=== PATIENT | male | born 1990 | race Caucasian/White ===

== ENCOUNTER 2018-04-26 02:28 | Emergency (ER) | payer SELFPAY ==
--- NOTE | 2018-04-26 02:58 | ER ---
Nurse's Notes [facility] Name: Eliceo Jeronimo Age: 28 yrs Sex: Male : 1990 Arrival Date: 04/26/2018 Time: : Bed 16 Private MD: Diagnosis: Presentation: 04/26 02:47 Presenting complaint: Patient states: Pt is manic/depressive paranoid schizophrenic, pt tl2 states he is running from a group of people and needs a safe place before he leaves town. Pt also complains of pain in lower back, states that he needs surgery. Pt denies SI or HI. Transition of care: patient was not received from another setting of care. Onset of symptoms was April 26, 2018. Risk Assessment: Do you want to hurt yourself or someone else? Patient reports no desire to harm self or others. Initial Sepsis Screen: Does the patient meet any 2 criteria? No. Patient's initial sepsis screen is negative. Does the patient have a suspected source of infection? No. Patient's initial sepsis screen is negative. Care prior to arrival: None. 02:47 Method Of Arrival: Ambulatory tl2 02:47 Acuity: SID 4 tl2 Triage Assessment: 02:50 General: Appears in no apparent distress. Behavior is cooperative, anxious, restless, tl2 paranoid. Pain: Complains of pain in lumbar area. Neuro: Level of Consciousness is awake, alert, obeys commands, Oriented to person, place, time, situation. Cardiovascular: Denies chest pain. Respiratory: Airway is patent Respiratory effort is even, unlabored, Respiratory pattern is regular, symmetrical. GI: No signs and/or symptoms were reported involving the gastrointestinal system. : No signs and/or symptoms were reported regarding the genitourinary system. Historical: - Allergies: 02:50 No Known Allergies; tl2 - Home Meds: 02:50 None [Active]; tl2 - PMHx: 02:50 Bipolar disorder; manic/depressive; paranoid schizophrenia; tl2 - PSHx: 02:50 back surgery; tl2 - Immunization history:: Adult Immunizations up to date. - Social history:: Smoking status: Patient uses tobacco products, smokes one-half pack cigarettes per day, Patient uses street drugs, marijuana, Methamphetamine (Meth). - Ebola Screening: : No symptoms or risks identified at this time. Screenin:53 Abuse screen: Denies threats or abuse. Nutritional screening: No deficits noted. tl2 Tuberculosis screening: No symptoms or risk factors identified. Fall Risk None identified. Assessment: 02:50 General: see triage assessment. tl2 02:57 Reassessment: Pt walked out of room and stated that he needed to leave now. Explained tl2 to pt risks of leaving before being seen by provider and he continued to walk out. Vital Signs: 02:50 BP 142 / 84; Pulse 105; Resp 18; Temp 98(O); Pulse Ox 95% on R/A; Weight 70.31 kg; tl2 Height 68 in. (172.72 cm); Pain 8/10; 02:50 Body Mass Index 23.57 (70.31 kg, 172.72 cm) tl2 ED Course: 02:31 Patient arrived in ED. es 02:49 Triage completed. tl2 02:50 Arm band placed on right wrist. tl2 02:53 Florencio Ortega MD is Attending Physician. 02:53 Patient has correct armband on for positive identification. Placed in gown. Bed in low tl2 position. Call light in reach. Administered Medications: No medications were administered Outcome: 02:58 Patient left the ED. tl2 Signatures: Terrie Wood Taylor, RN RN tl2 Florencio Ortega MD MD Corrections: (The following items were deleted from the chart) 02:53 02:47 Presenting complaint: Patient states: Pt is manic/depressive paranoid tl2 schizophrenic, pt states he is running from a group of people and needs a safe place before he leaves town. Pt also complains of pain in lower back, states that he needs surgery. tl2
--- NOTE | 2018-04-27 02:58 | EDPHYS ---
Physician Documentation [facility] Name: Eliceo Jeronimo Age: 28 yrs Sex: Male : 1990 Arrival Date: 04/26/2018 Time: : Bed 16 Private MD: ED Physician Florencio Ortega HPI: 04/26 20:58 This 28 yrs old Male presents to ER via Ambulatory with complaints of Altered gs Mental Status. 20:[address] see patient refused to be seen. gs Historical: - Allergies: 02:50 No Known Allergies; tl2 - Home Meds: 02:50 None [Active]; tl2 - PMHx: 02:50 Bipolar disorder; manic/depressive; paranoid schizophrenia; tl2 - PSHx: 02:50 back surgery; tl2 - Immunization history:: Adult Immunizations up to date. - Social history:: Smoking status: Patient uses tobacco products, smokes one-half pack cigarettes per day, Patient uses street drugs, marijuana, Methamphetamine (Meth). - Ebola Screening: : No symptoms or risks identified at this time. Vital Signs: 02:50 BP 142 / 84; Pulse 105; Resp 18; Temp 98(O); Pulse Ox 95% on R/A; Weight 70.31 kg; tl2 Height 68 in. (172.72 cm); Pain 8/10; 02:50 Body Mass Index 23.57 (70.31 kg, 172.72 cm) tl2 MDM: 02:54 Patient medically screened. gs Administered Medications: No medications were administered Disposition: 04/26/18 02:58 Patient left the facility before being seen by provider. - Patient left due to (see nurse's notes). Signatures: Kasey Orosco RN RN tl2 Florencio Ortega MD MD gs Corrections: (The following items were deleted from the chart) 02:58 02:58 04/26/2018 02:58 Patient left the facility before being seen by provider. Reason tl2 stated they are leaving due to (see nurse's notes). tl2
== END 2018-04-26 02:58 | disposition left against medical advice (07) ==
LOC: ER 02:28
DX: Z53.21 Procedure and treatment not carried out due to patient leaving prior to being seen by health care provider (principal)
CPT/HCPCS: 99281

== ENCOUNTER 2018-04-27 20:23 | Emergency (ER) | payer SELFPAY ==
--- NOTE | 2018-04-27 20:28 | ER ---
Nurse's Notes [facility] Name: Eliceo Jeronimo Age: 28 yrs Sex: Male : 1990 Arrival Date: 04/27/2018 Time: 20:26 Bed Waiting Private MD: Diagnosis: ED Course: 04/27 20:26 Patient arrived in ED. ak1 20:27 Patient's name was called from ER lobby. No response. Unable to locate patient. Will ak1 disposition as left without being seen by a provider. Administered Medications: No medications were administered Outcome: 20:27 Patient left the ED. ak1 Signatures: Carmen Echeverria RN RN ak1
== END 2018-04-27 20:27 | disposition left against medical advice (07) ==
LOC: ER 20:23
DX: Z53.21 Procedure and treatment not carried out due to patient leaving prior to being seen by health care provider (principal)

== ENCOUNTER 2022-08-25 13:55 | Emergency (ER) | payer OTHER ==
--- OUTSIDE RECORDS SUMMARY | 2022-08-25 14:03 | XMS REPORT | Continuity of Care Document ---
:1990 Author Organization [facility] t Address [address] [place] [address]. [address] [place] [address] Care Team Providers Name Role Phone [facility], [facility] [facility] [facility] Primary Care Physician Unavailable ALEX GOULD Attending Clinician Unavailable Alex Solo Attending Clinician Pam Jim DO Attending Clinician PAM JIM Attending Clinician Unavailable Brigitte Gandhi Attending Clinician BRIGITTE MOELLER Attending Clinician Unavailable ALEX GOULD Admitting Clinician Unavailable Payers Payer Name Policy Type Policy Number Effective Date Expiration Date S carissa [employer] [id number] 2022 00:00:00 Problems Condition Condition Condition Status Onset Resolution Last Treating Co mments Source Name Details Category Date Date Treatment Clinician Date No known No known Disease Unive rs active active ity of problems problems [facility] Allergies, Adverse Reactions, Alerts Allergy Allergy Status Severity Reaction(s) Onset Inactive Treating Comm ents Source Name Type Date Date Clinician NO KNOWN Drug Active Univers ALLERGIE Class ity of S [facility] Social History Social Habit Start Date Stop Date Quantity Comments Source Exposure to 2022-04-11 2022-04-21 Not sure [facility] SARS-CoV-2 (event) 00:00:00 18:05:00 Medica l Branch Sex Assigned At [birth year] [facility] [place] 00:00:00 00:00:00 Medical Branch Smoking Status Start Date Stop Date Source Tobacco smoking consumption [facility] [place] Medical unknown Branch Medications Ordered Filled Start Stop Current Ordering Indication Dosage Frequency Signature Comments Components Source Medication Medication Date Date Medication? Clinician (SIG) Name Name prasannao 2021-04 No 10mg 10 mg, Uni vers ne sod phos 06-23 Intramuscu i ty of PF 02:00: 02:07 lar, ONCE, [place] injection 00 :00 1 dose, On Medi pam 10 mg Mon Branch 04/21/22 at 1999, 1 mL ketorolac 2021-04- No 60mg 60 mg, Unive rs (TORADOL) 06-23 Intramuscu ity of injection 02:00: 02:00 lar[place] ONCE[place] 60 mg 00 :00 1 dose, On Medical Mon Branch 04/21/22 at 1999, WILL predniSONE 2021-04- No [id number] 40mg Take 2 Univers 20 mg 06-23 [id number] tablets by ity o f tablet 00:00: 05:59 mouth in [place] 00 :00 the Medical morning Branch for 5 days. ibuprofen 2021-04 Yes [id number] 800mg Take 1 Univers 800 mg 06-22 [id number] tablet by ity of tablet 00:00: mouth [place] 00 every 8 Medical (eight) Branch hours as needed for Pain (scale 4-6). acetaminoph 2021-04- No [id number] 1{tbl} Take 1 U nivers en-codeine 06-22 tablet by ity of 300-30 mg 00:00: 05:59 mouth [place] tablet 00 :00 every 6 Medical (six) Branch hours as needed for Pain (scale 7-10) for up to 7 days. Indication s: acute pain morpHINE 2019-04- No 4mg 4 mg, Slow Un ambrocio injection 4 06-12 IV Push, ity of mg 02:30: 01:29 ONCE, 1 [place] [facility] Branch at 2029, STAT iohexol 2019-04- No 120mL 120 mL, Unive rs (OMNIPAQUE -11 04- Intravenou it y of 350 01:30: 01:08 s, ONCE, 1 [place] BULK-100 00 :00 dose, Tue Medica l mL) 04/10/20 Branch injection at 1930, 120 mL Routine morpHINE 2019-04- No 4mg 4 mg, Slow Un ambrocio injection 4 2-16 12-16 IV Push, ity of mg 01:15: 00:14 ONCE, 1 [place] 00 :00 dose, Tue Medical 04/10/20 Branch at 1915, STAT ondansetron 2019-04- No 4mg 4 mg, Slow Univers (ZOFRAN 2-16 12-16 IV Push, ity of (PF)) 01:15: 00:14 ONCE, 1 [place] injection 4 00 :00 dose, Tue Med ical mg 04/10/20 Branch at 191, WILL maalox:diph 2019-04- No 15mL 15 mL, Uni vers enhydrAMINE 2-16 12-16 Oral, ity of :lidocaine 00:15: 00:15 ONCE, 1 [place] as 2 % viscous 00 :00 dose, Tue Med ical 1:1:1 04/10/20 Branch (FIRST-MOUT at 181, HWASH BLM) WILL oral suspension 15 mL NaCl 0.9% 2019-04- No 1000mL at 999 Uni vers (NS) bolus 2-16 12-16 mL/hr, ity of infusion 00:15: 01:22 1,000 mL, [place] as 1,000 mL 00 :00 IV Medical Infusion, Branch ONCE, 1 dose, 04/10/20 at 1815, WILL ondansetron 2019-04 Yes [id number] 4mg Take 1 U nivers 4 mg 2-15 tablet by ity of disintegrat 00:00: mouth [place] ing tablet 00 every 8 Medica l (eight) Branch hours as needed for Nausea and Vomiting (N/V). traMADoL 50 2019- Yes [id number] 50mg Take 1 Univ ers mg tablet 2-15 tablet by ity o f 00:00: mouth [place] 00 every 6 Medical (six) Branch hours as needed for Pain (scale 7-10). Indication s: acute pain ondansetron 2019-04 Yes [id number] 4mg Take 1 U nivers 4 mg 2-15 tablet by ity of disintegrat 00:00: mouth [place] ing tablet 00 every 8 Medica l (eight) Branch hours as needed for Nausea and Vomiting (N/V). traMADoL 50 2019-04 Yes [id number] 50mg Take 1 Univ ers mg tablet 2-15 tablet by ity o f 00:00: mouth [place] 00 every 6 Medical (six) Branch hours as needed for Pain (scale 7-10). Indication s: acute pain ondansetron 2019-04 Yes [id number] 4mg Take 1 U nivers 4 mg 2-15 tablet by ity of disintegrat 00:00: mouth [place] ing tablet 00 every 8 Medica l (eight) Branch hours as needed for Nausea and Vomiting (N/V). traMADoL 50 2019-04 Yes [id number] 50mg Take 1 Univ ers mg tablet 2-15 tablet by ity o f 00:00: mouth [place] 00 every 6 Medical (six) Branch hours as needed for Pain (scale 7-10). Indication s: acute pain ciprofloxac 2019-04- No [id number] 500mg Take 1 Univers in HCl 500 2-15 12-23 tablet by ity of mg tablet 00:00: 05:59 [place] 00 :[place] (two) Medical times Branch daily for 7 days. ciprofloxac 2019-04- No [id number] 500mg Take 1 Univers in HCl 500 2-15 12-21 tablet by ity of mg tablet 00:00: 05:59 [place] 00 :[place] (two) Medical times Branch daily for 5 days. Vital Signs Vital Name Observation Time Observation Value Comments Source Systolic blood 2022-04-22 02:00:00 152 mm[Hg] [facility] [place] [facility] Diastolic blood 2022-04-22 02:00:00 88 mm[Hg] [facility], [facility] Heart rate 2022-04-22 02:00:00 78 /min [facility] Respiratory rate 2022-04-22 02:00:00 18 /min [facility] Oxygen saturation in 2022-04-22 02:00:00 98 /min [facility] Arterial blood by [facility] Pulse oximetry Branch Body temperature 2022-04-22 00:08:00 37.22 [facility] Body height 2022-04-22 00:08:00 175.3 cm [facility] Body weight 2022-04-22 00:08:00 74.844 kg [facility] [place] [facility] BMI 2022-04-22 00:08:00 24.37 kg/m2 [facility] [place] [facility] Systolic blood 2020-07-17 17:52:00 134 mm[Hg] Univer sity of pressure [place] [facility] Diastolic blood 2020-07-17 17:52:00 97 mm[Hg] Unive rsity of pressure [place] [facility] [place] Heart rate 2020-07-17 17:52:00 102 /min [facility] [place] [facility] Body temperature 2020-07-17 17:52:00 37.44 [facility] [place] [facility] Respiratory rate 2020-07-17 17:52:00 16 /min Univ ersity [facility] [place] Medical [place] Body weight 2020-07-17 17:52:00 77.111 kg [facility] [place] [facility] [place] BMI 2020-07-17 17:52:00 25.10 kg/m2 Universi ty of [facility] Oxygen saturation in 2020-07-17 17:52:00 99 /min University of Arterial blood by [facility] Pulse oximetry Branch Systolic blood 2020-04-11 02:32:00 134 mm[Hg] Univer sity of pressure [place] [facility] [place] Diastolic blood 2020-04-11 02:32:00 94 mm[Hg] Unive rsity of pressure [facility] Heart rate 2020-04-11 02:32:00 92 /min [facility] [place] [facility] [place] Respiratory rate 2020-04-11 02:32:00 18 /min Univ ersity of [facility] Oxygen saturation in 2020-04-11 02:32:00 98 /min University of Arterial blood by [facility] Pulse oximetry Branch Body temperature 2020-04-10 23:48:00 36.67 [facility] [place] [facility] Body height 2020-04-10 23:48:00 175.3 cm [facility] [place] [facility] [place] Body weight 2020-04-10 23:48:00 79.379 kg [facility] [place] [facility] BMI 2020-04-10 23:48:00 25.84 kg/m2 Universi ty of [facility] Procedures Procedure Date / Time Performed Performing Clinician Sourc e XR WRIST 3+ VW LEFT 2022-04-22 01:05:48 Alex Gould [facility] CONSENT/REFUSAL FOR 2022-04-21 23:50:01 Doctor Unassigned, No [facility] [place] DIAGNOSIS AND Name Medical Branch TREATMENT CONSENT/REFUSAL FOR 2020-07-17 17:48:26 Doctor Unassigned, No [facility] [place] DIAGNOSIS AND Name Medical Branch TREATMENT URINALYSIS 2020-04-11 01:24:[address] [facility] CT ABDOMEN PELVIS W 2020-04-11 01:16:[address] [facility] [facility] Branch LIPASE 2020-04-11 00:13:00 Brigitte Moeller Universi ty [facility] COMP. METABOLIC PANEL 2020-04-11 00:13:00 Brigitte Moeller [facility] [place] ([id number]) Medical Branch CBC WITH DIFF 2020-04-11 00:13:00 Brigitte Moeller [facility] COVID-19 (ID NOW RAPID 2020-04-11 00:13:00 Brigitte Moeller [facility] [place] TESTING) Medical Branch CONSENT/REFUSAL FOR 2020-04-10 23:32:57 Doctor Unassigned, No [facility] [place] DIAGNOSIS AND Name Medical Branch TREATMENT NOTICE OF PRIVACY 2020-04-10 23:32:47 Doctor Unassigned, No [facility] PR[facility] Name Medical Branch Encounters Start End Encounter Admission Attending Care Care Encounter Source Date/Time Date/Time Type Type Clinicians Facility Department ID 2022-04-21 2022-04-21 Emergency X GOULD, [facility] ERT [id number] Univers 18:10:00 20:15:00 ALEX xavier [facility] 2022-04-21 2022-04-21 Emergency Gould, [facility] [id number] Univers 18:10:00 20:15:00 Alex BLAIR [id number] i ty [facility] [id number] [facility] [id number] [facility] 084 Branch 2020-07-17 2020-07-17 Emergency Diandra, [facility] [id number] Univers 12:54:00 13:20:00 Pam [id number] [id number] [facility] [id number] [address] 2020-07-17 2020-07-17 Emergency [facility] E[facility] [id number] [facility] 12:54:00 12:54:00 PAM [facility] 2020-04-10 2020-04-10 Emergency [facility] [id number] Univers 17:50:00 21:00:00 Brigitte Blair [id number] [facility] [id number] [facility] [id number] [address] 2020-04-10 2020-04-10 Emergency [facility] [id number] [facility] 17:33:00 17:33:00 [facility] Results Test Description Test Time Test Comments Results Result Comments Source URINALYSIS 2020-04-11 02:42:00 Test Item Value Reference Range Interpretation Comme nts APPEARANCE (test code = Hazy Clear A 0508306633) COLOR (test code = 6570652707) Carmen Yellow A PH (test code = 0413394737) 4.8-8.0 SP GRAVITY (test code = 1.003-1.030 4308965229) GLU U QUAL (test code = Normal Normal 6807610929) BLOOD (test code = 3292470368) Negative Negative KETONES (test code = 1943044104) 80 mg/dL Negative A PROTEIN (test code = 2887-8) 100 mg/dL Negative A UROBILIN (test code = 2.0 mg/dL Normal A 8586576065) BILIRUBIN (test code = 2 mg/dL Negative A 0507944721) NITRITE (test code = 5593567465) Negative Negative LEUK DELILAH (test code = 25/uL Negative A 7993925450) RBC/HPF (test code = 9301220669) See_Comment H [Automated message] The system which ge nerated this result transmit jaime reference range: 0 - 3 HP F. The reference range was not used to interpret th is result as normal/abnormal . WBC/HPF (test code = 0415627837) See_Comment [Automated message] The system which ge nerated this result transmit jaime reference range: 0 - 5 HP F. The reference range was not used to interpret th is result as normal/abnormal . BACTERIA (test code = Few Negative A 1878943044) MUCOUS (test code = 8936879198) Marked Negative LPF A SQ EPITH (test code = <1 HPF 4379951198) HYAL CAST (test code = See_Comment H [Aut omated message] The 5757061351) system which [employer] nerated this result transmit jaime reference range: <=2 LPF. The reference range was not used to interpret th is result as normal/abnormal . TRANS EPI (test code = <1 See_Comment [Aut omated message] The 3128820872) system which [employer] nerated this result transmit jaime reference range: <=1 HPF. The reference range was not used to interpret th is result as normal/abnormal . Ictotest (test code = Negative 2754545733) Lab Interpretation (test code = Abnormal 78964-0) [facility] [id number] 02:05:13 1. ?Findings are indicative of an enterocolitis which could be infectiousor noninfectious.2. No bowel obstruction, appendicitis, free air, free fluid, or focalloculated intraperitoneal fluid collections.3. Small left renal cyst. RL: 135 END OF REPORT Electronically signed by Nagi Hernandez MD at 04/10 8:05 PMORDERING PHYSICIAN: BRIGITTE MOELLER CLINICAL INFORMATION: ? Nausea, vomiting Abd pain, gastroenteritis orcolitis suspected Abd pain, acute, generalized COMPARISON: None Technique: ? CT of the abdomen and pelvis was performed after theadministration of IV contrast. No p.o. contrast was used. Multiplanarreformats were also obtained. This study was performed according to ALARAprinciple for radiation dose reduction. Findings: There is no evidence of obstructive uropathy. No suspicious renalparenchymal abnormalities are seen. Small cyst is seen posteriorly in theinterpolar region of the left kidney. Liver, gallbladder, spleen, adrenalglands, pancreas show no evidence of gross abnormalities. There is no bowelobstruction. There is no appendicitis. There is diffuse mild small boweland colonic mucosal edema. No free air or free fluid is seen in the abdomenor pelvis. No pathologically enlarged lymph nodes are seen. The lung basesremain clear. No suspicious focal osseous lesions are present. [facility], Radiant Results Inft User - 04/10/2020 8:06 PM CSTORDERING PHYSICIAN: BRIGITTE IBARRAUNLECLINICAL INFORMATION: Nausea, vomiting Abd pain, gastroenteritis orcolitis suspected Abd pain, acute, generalized COMPARISON: NoneTechnique: CT of the abdomen and pelvis was performed after theadministration of IV contrast. No p.o. contrast was used. Multiplanarreformats were also obtained. This study was performed according to ALARAprinciple for radiation dose reduction.Findings:There is no evidence of ob structive uropathy. No suspicious renalparenchymal abnormalities are seen. Small cyst is seen posteriorly in theinterpolar region of the left kidney. Liver, gallbladder, spleen, adrenalglands, pancreasshow no evidence of gross abnormalities. There is no bowelobstruction. There is no appendicitis. There is diffuse mild small boweland colonic mucosal edema. No free air or free fluid is seen in the abdomenor pelvis. No pathologically enlarged lymph nodes are seen. The lung basesremain clear. No suspicious focal osseous lesions are present.IMPRESSION1. Findings are indicative of an enterocolitis whichcould be infectiousor noninfectious.2. No bowel obstruction, appendicitis, free air, free fluid, or focalloculated intraperitoneal fluid collections.3. Small left renal cyst.RL: 135END [facility] 2020-04-11 01:24:00 Test Item Value Reference Range Interpretation Comments WBC (test code = See_Comment H [Automated 0390-2) message] The system which generated this result transmit jaime reference range : 4.20 - 10.70 10*3/?L. The reference range was not used to interpret this result as normal/abnormal . RBC (test code = See_Comment [Automated 429-8) message] The system which generated this result transmit jaime reference range : 4.26 - 5.52 10*6/?L. The reference range was not used to interpret this result as normal/abnormal . HGB (test code = 14.6 g/dL 12.2-16.4 718-7) HCT (test code = 41.3 % 38.4-49.3 4544-3) MCV (test code = 89.8 fL 81.7-95.6 787-2) MCH (test code = 31.7 pg 26.1-32.7 785-6) MCHC (test code = 35.4 g/dL 31.2-35 H 786-4) RDW-SD (test code = 39.8 fL 38.5-51.6 77971-3) RDW-CV (test code = 12.2 % 12.1-15.4 788-0) PLT (test code = See_Comment [Automated 777-3) message] The system which generated this result transmit jaime reference range : 150 - 328 10*3/ ?L. The reference range was not u sed to interpret th is result as normal/abnormal . MPV (test code = 9.7 fL 9.8-13 L 88414-4) NRBC/100 WBC (test See_Comment [Automat ed code = 6161187797) message] The system which generated this result transmit jaime reference range : 0.0 - 10.0 /100 WBCs. The reference range was not used to interpret this result as normal/abnormal . NRBC x10^3 (test code <0.01 See_Comment [Auto mated = 2978768500) message] The system which generated this result transmit jaime reference range : 10*3/?L. The reference range was not used to interpret this result as normal/abnormal . GRAN MAT (NEUT) % 83.2 % (test code = 770-8) IMM GRAN % (test code 0.30 % = 8361606774) LYMPH % (test code = 5.3 % 736-9) MONO % (test code = 10.0 % 5905-5) EOS % (test code = 0.9 % 713-8) BASO % (test code = 0.3 % 706-2) GRAN MAT x10^3(ANC) 15.80 10*3/uL 1.99-6.95 H (test code = 1873338075) IMM GRAN x10^3 (test 0.06 10*3/uL 0-0.06 code = 3451172910) LYMPH x10^3 (test code 1.00 10*3/uL 1.09-3.23 L = 731-0) MONO x10^3 (test code 1.90 10*3/uL 0.36-1.02 H = 742-7) EOS x10^3 (test code = 0.17 10*3/uL 0.06-0.53 711-2) BASO x10^3 (test code 0.05 10*3/uL 0.01-0.09 = 704-7) BANDS (test code = Increased A 5125342122) Lab Interpretation Abnormal (test code = 97392-7) [facility] NOW RAPID TESTING)2020-04-11 00:59:00 Test Item Value Reference Range Interpretation Comments SARS-CoV-2 Rapid ID NOW Not Detected Not Detected (test code = 64752-4) AILEEN (test code = AILEEN) ID NOW COVID-19 Assay is an isothermal nucleic acid amplification test intended for the qualitative detection of nucleic acid from SARS-CoV-2 viral RNA in nasopharyngeal (SOFTWARE PROJECT ENGINEER) specimens. It is used under Emergency Use Authorization (EUA) by FDA. The limit of detection (LOD) of the assay is 125 Genome Equivalents/mL. A positive result is indicative of the presence of SARS-CoV-2 RNA. ?Clinical correlation with patient history and other diagnostic information is necessary to determine patient infection status. A negative (Not Detected) result does not preclude SARS-CoV-2 infection. In patients with clinical symptoms and other tests that are consistent with SARS-CoV-2 infection, negative results should be treated as presumptive negative and a new specimen should be tested with alternative PCR molecular test. Invalid: Please collect a new specimen for repeat patient testing if clinically indicated. Lab Interpretation Normal (test code = 56595-5) [facility] Metabolic [id number] 00:42:00 Test Item Value Reference Range Interpretation Comments NA (test code = 139 mmol/L 135-145 3879655863) K (test code = 4.0 mmol/L 3.5-5 8074312213) CL (test code = 101 mmol/L 98-108 3757880476) CO2 TOTAL (test code = 28 mmol/L 23-31 4375749115) AGAP (test code = 2-16 7332011000) BUN (test code = 11 mg/dL 7-23 2915188576) GLUCOSE (test code = 92 mg/dL 70-110 1184577419) CREATININE (test code 0.82 mg/dL 0.6-1.25 = 4587207371) TOTAL BILI (test code 0.7 mg/dL 0.1-1.1 = 8770284693) CALCIUM (test code = 9.5 mg/dL 8.6-10.6 0738127380) T PROTEIN (test code = 7.6 g/dL 6.3-8.2 2435665785) ALBUMIN (test code = 4.5 g/dL 3.5-5 4319479937) ALK PHOS (test code = 62 U/L 34-122 6339436905) ALTv (test code = 10 U/L 5-50 2-6) AST(SGOT) (test code = 22 U/L 13-40 4486128945) eGFR Calculation mL/min/1.73m2 (Non-) (test code = 9695939985) eGFR Calculation mL/min/1.73m2 () (test code = 4254695500) AILEEN (test code = AILEEN) Association of Glomerular Filtration Rate (GFR) and Staging of Kidney Disease* + -+ + ---+| GFR (mL/min/1.73 m2) ?| With Kidney Damage ?| ?Without Kidney Damage+ -------+ ------+ ---------+| ?>90 ?| ?Stage one ?| ? Normal ?+ --+ -+ ----+| ?60-89 ?| ?Stage two ?| ? Decreased GFR ? + -+ + ---+| ?30-59 ?| ?Stage three ?| ? Stage three ? + -+ + ---+| ?15-29 ?| ?Stage four ? | ? Stage four ?+ --+ -+ ----+| ?<15 (or dialysis) ? ?| ?Stage five ? | ? Stage five ?+ --+ -+ ----+ *Each stage assumes the associated GFR level has been in effect for at least three months. ?Stages 1 to 5, with or without kidney disease, indicate chronic kidney disease. Notes: Determination of stages one and two (with eGFR >59mL/min/1.73 m2) requires estimation of kidney damage for at least three months as defined by structural or functional abnormalities of the kidney, manifested by either:Pathological abnormalities or Markers of kidney damage (including abnormalities in the composition of the blood or urine or abnormalities in imaging tests). [facility], [id number] 00:42:00 Test Item Value Reference Range Interpretation Comments LIPASE (test code = 0538014751) 19 U/L 0-220 Lab Interpretation (test code = Normal 53577-5) [facility]"
--- NOTE | 2022-08-25 15:35 | RAD REPORT ---
EXAM DESCRIPTION: Tyshawn Single View08/25/2022 2:53 pm CLINICAL HISTORY: BLUNT CHEST TRAUMA COMPARISON: No comparisons TECHNIQUE: Portable AP view of the chest. FINDINGS: The lungs are clear.11 millimeter right upper to mid lung nodule, could represent a calcif ied granuloma. No pneumothorax or effusion. The cardiomediastinal contours are unremarkable. IMPRESSION: No acute cardiopulmonary process. 11 millimeter right upper to mid lung nodule, could represent a calcified granuloma.
--- NOTE | 2022-08-25 15:51 | EDPHYS ---
Physician Documentation [facility] Name: Eliceo Jeronimo Age: 32 yrs Sex: Male : 1990 Arrival Date: 08/25/2022 Time: 13:55 Bed IW3 Private MD: ED Physician Pasha Rock HPI: 08/25 14:51 This 32 yrs old Male presents to ER via Ambulatory with complaints of RIB PAIN. kb 14:51 The patient or guardian reports chest pain that is located primarily in the anterior kb chest wall. Onset: The symptoms/episode began/occurred 3 day(s) ago. The pain does not radiate. Associated signs and symptoms: The patient has no apparent associated signs or symptoms. The chest pain is described as sharp. Duration: The patient or guardian reports a single episode. Modifying factors: The symptoms are alleviated by remaining still, the symptoms are aggravated by activity, breathing, cough, deep breath, movement, palpation of area. Severity of pain: At its worst the pain was moderate in the emergency department the pain is unchanged. The patient has not experienced similar symptoms in the past. The patient has not recently seen a physician. Pt reports he fell, hitting his left chest on a corner of furniture on Thursday. c/o rib pain since then.. Historical: - Allergies: 14:13 No Known Allergies; ll1 - PMHx: 14:13 Bipolar disorder; manic/depressive; Paranoid Schizophrenia; ll1 - PSHx: 14:13 None; ll1 - Immunization history:: Client reports having NOT received the Covid vaccine. - Social history:: Smoking status: Patient reports the use of cigarette tobacco products, smokes one-half pack cigarettes per day. ROS: 14:50 Constitutional: Negative for fever, chills, and weight loss. kb 14:50 Cardiovascular: Positive for chest pain, with cough, with movement, of the left breast. 14:50 All other systems are negative. Exam: 14:50 Constitutional: This is a well developed, well nourished patient who is awake, alert, kb and in no acute distress. Head/Face: Normocephalic, atraumatic. ENT: Moist Mucous membranes Cardiovascular: Regular rate and rhythm with a normal S1 and S2. No gallops, murmurs, or rubs. No pulse deficits. Respiratory: Respirations even and unlabored. No increased work of breathing. Talking in full sentences Abdomen/GI: Soft, non-tender. No distention Skin: Warm, dry with normal turgor. Normal color. MS/ Extremity: Pulses equal, no cyanosis. Neurovascular intact. Full, normal range of motion. Neuro: Awake and alert, GCS 15, oriented to person, place, time, and situation. Moves all extremities. Normal gait. 14:50 Chest/axilla: Inspection: normal, Palpation: tenderness, that is moderate, of the left breast, that totally reproduces the patient's complaints. Vital Signs: 14:13 BP 183 / 114; Pulse 91; Resp 17; Temp 98.1; Pulse Ox 100% ; Weight 74.84 kg; Height 5 ll1 ft. 9 in. ; Pain 6/10; 16:06 BP 161 / 113; ll1 14:13 Body Mass Index 24.37 (74.84 kg, 175.26 cm) ll1 14:13 Pain Scale: Adult ll1 MDM: 14:11 Patient medically screened. kb 14:50 Differential diagnosis: rib fracture, contusion, pneumothorax. Data reviewed: vital kb signs, nurses notes. 15:50 Counseling: I had a detailed discussion with the patient and/or guardian regarding: the kb historical points, exam findings, and any diagnostic results supporting the discharge/admit diagnosis, radiology results, the need for outpatient follow up, a family practitioner, to return to the emergency department if symptoms worsen or persist or if there are any questions or concerns that arise at home. 08/25 14:14 Order name: Chest Single View XRAY; Complete Time: 15:49 kb Administered Medications: 16:06 Drug: Ketorolac IM 30 mg Route: IM; Site: right deltoid; ll1 16:09 Follow up: Response: No adverse reaction ll1 Disposition: 16:51 Co-signature as Attending Physician, Pasha Rock MD. rn Disposition Summary: 08/25/22 15:50 Discharge Ordered Location: Home kb Condition: Stable kb Diagnosis - Contusion of left front wall of thorax kb Followup: kb - With: Emergency Department - When: As needed - Reason: Worsening of condition Followup: kb - With: Private Physician - When: 2 - 3 days - Reason: Recheck today's complaints, Continuance of care, Re-evaluation by your physician Discharge Instructions: - Discharge Summary Sheet kb - Chest Wall Pain, Vmlo-jr-Snsu kb - Chest Contusion, Adult, [id number]-[id number]-[id number] kb Forms: - Medication Reconciliation Form kb - Thank You Letter kb - Antibiotic Education kb - Prescription Opioid Use kb Prescriptions: - Cyclobenzaprine 10 mg Oral Tablet - take 1 tablet by ORAL route every 8 hours As needed; 15 tablet; Refills: 0, kb Product Selection Permitted - Diclofenac Sodium 75 mg Oral tablet,delayed release (DR/EC) - take 1 tablet by ORAL route 2 times per day As needed; 30 tablet; Refills: 0, kb Product Selection Permitted Signatures: Dispatcher [employer] EDAlfreda Lal, MANAGEMENT COORDINATOR-C MANAGEMENT COORDINATOR-Mattib Pasha Rock MD MD rn Sarah Ramos RN RN ll1
--- NOTE | 2022-08-25 15:51 | ER ---
Nurse's Notes [facility] Name: Eliceo Jeronimo Age: 32 yrs Sex: Male : 1990 Arrival Date: 08/25/2022 Time: 13:55 Bed IW3 Private MD: Diagnosis: Contusion of left front wall of thorax Presentation: 08/25 14:13 Chief complaint: Patient states: Fell on Thursday. Hit L chest on table. Pain is severe ll1 today. Coronavirus screen: Client denies travel out of the [place] in the last 14 days. At this time, the client does not indicate any symptoms associated with coronavirus-19. Ebola Screen: Patient denies travel to an Ebola-affected area in the 21 days before illness onset. Initial Sepsis Screen: Does the patient meet any 2 criteria? No. Patient's initial sepsis screen is negative. Does the patient have a suspected source of infection? Yes: Bone or joint infection. Risk Assessment: Do you want to hurt yourself or someone else? Patient reports no desire to harm self or others. Onset of symptoms was August 22, 2022. 14:13 Method Of Arrival: Ambulatory ll1 14:13 Acuity: SID 4 ll1 Triage Assessment: 14:37 General: Appears uncomfortable, Behavior is calm, cooperative, appropriate for age. ll1 Pain: Complains of pain in L chest. Musculoskeletal: Reports pain in L chest. Historical: - Allergies: 14:13 No Known Allergies; ll1 - PMHx: 14:13 Bipolar disorder; manic/depressive; Paranoid Schizophrenia; ll1 - PSHx: 14:13 None; ll1 - Immunization history:: Client reports having NOT received the Covid vaccine. - Social history:: Smoking status: Patient reports the use of cigarette tobacco products, smokes one-half pack cigarettes per day. Screenin:10 [facility] ED Fall Risk Assessment (Adult) Score/Fall Risk Level 0 - 2 = Low Risk ll1 Oriented to surroundings, Maintained a safe environment, Educated pt \T\ family on fall prevention, incl call for assistance when getting out of bed, Hourly rounding (assess needs \T\ fall precautionary measures) done. Abuse screen: Denies threats or abuse. Nutritional screening: No deficits noted. Tuberculosis screening: No symptoms or risk factors identified. Assessment: 16:10 Reassessment: No changes from previously documented assessment. Patient and/or family ll1 updated on plan of care and expected duration. Pain level reassessed. Patient is alert, oriented x 3, equal unlabored respirations, skin warm/dry/pink. Alfreda informed of elevated BP still. Follow-up with PCP, still cleared for discharge. Vital Signs: 14:13 BP 183 / 114; Pulse 91; Resp 17; Temp 98.1; Pulse Ox 100% ; Weight 74.84 kg; Height 5 ll1 ft. 9 in. ; Pain 6/10; 16:06 BP 161 / 113; ll1 14:13 Body Mass Index 24.37 (74.84 kg, 175.26 cm) ll1 14:13 Pain Scale: Adult ll1 ED Course: 14:02 Patient arrived in ED. ts1 14:03 Alfreda Bowen, [facility] kb 14:03 Pasha Rock MD is Attending Physician. kb 14:13 Arm band placed on. ll1 14:14 Triage completed. ll1 14:55 Chest Single View XRAY In Process Unspecified. EDMS 16:11 Patient has correct armband on for positive identification. Bed in low position. Call ll1 light in reach. Cardiac monitoring not applicable on this patient. 16:11 No provider procedures requiring assistance completed. Patient did not have IV access ll1 during this emergency room visit. Administered Medications: 16:06 Drug: Ketorolac IM 30 mg Route: IM; Site: right deltoid; ll1 16:09 Follow up: Response: No adverse reaction ll1 Medication: 16:11 VIS not applicable for this client. ll1 Outcome: 15:50 Discharge ordered by . kb 16:11 Discharged to home ambulatory. ll1 16:11 Condition: stable 16:11 Discharge instructions given to patient, Instructed on discharge instructions, follow up and referral plans. medication usage, Demonstrated understanding of instructions, follow-up care, medications, Prescriptions given X 2. 16:11 Patient left the ED. ll1 Signatures: Dispatcher [employer] EDMS Alfreda Bowen, Sarah Galloway, VEDA RN ll1 Jossie Raymundo PAS PAS ts1
[2022-08-25] MEDS ORDERED: KETOROLAC 30 MG/ML INJ ONE (16:06)
[2022-08-25 17:10] VITALS: TEMP 98.1; O2SAT 100
[2022-08-25 17:11] VITALS: BP 161/113
== END 2022-08-25 16:11 | disposition home or self-care (01) ==
LOC: ER 13:55
DX: S20.212A Contusion of left front wall of thorax, initial encounter (principal); F17.210 Nicotine dependence, cigarettes, uncomplicated
CPT/HCPCS: 71045; 96372; 99284

== ENCOUNTER 2022-11-28 16:31 | Emergency (ER) | payer OTHER ==
--- OUTSIDE RECORDS SUMMARY | 2022-11-28 16:35 | XMS REPORT | Continuity of Care Document ---
:1990 Author Organization [facility] t Address [address] [place] [address] [place] [id number] Care Team Providers Name Role Phone [facility], [employer] [facility] Primary Care Physician Unavailable ALEX GOULD Attending Clinician Unavailable Alex Solo Attending Clinician Pam Jim DO Attending Clinician PAM JIM Attending Clinician Unavailable Brigitte Gandhi Attending Clinician BRIGITTE MOELLER Attending Clinician Unavailable ALEX GOULD Admitting Clinician Unavailable Payers Payer Name Policy Type Policy Number Effective Date Expiration Date [facility] [id number] 2013 00:00:00 Problems Condition Condition Condition Status Onset Resolution Last Treating Co mments Source Name Details Category Date Date Treatment Clinician Date No known No known Disease Unive rs active active ity of problems problems [facility] Allergies, Adverse Reactions, Alerts Allergy Allergy Status Severity Reaction(s) Onset Inactive Treating Comm ents Source Name Type Date Date Clinician NO KNOWN Drug Active Univers ALLERGIE Class ity of S [facility] Social History Social Habit Start Date Stop Date Quantity Comments Source Exposure to 2022-04-11 2022-04-21 Not sure [facility] SARS-CoV-2 (event) 00:00:00 18:05:00 Medica l Branch Sex Assigned At [birth year] [facility] [place] 00:00:00 00:00:00 Medical Branch Smoking Status Start Date Stop Date Source Tobacco smoking consumption [facility] Medical unknown Branch Medications Ordered Filled Start [...] 04/21/22 at 1999, WILL predniSONE 2021-04- No [id number] 40mg Take 2 Univers 20 mg 06-23 [id number] tablets by ity o f tablet 00:00: 05:59 mouth in [place] 00 :00 the Medical morning Branch for 5 days. ibuprofen 2021-04 Yes [id number] 800mg Take 1 Univers 800 mg 06-22 [id number] tablet by ity of tablet 00:00: mouth [...] ity of mg 02:30: 01:29 ONCE, 1 [place] 00 :00 [facility] Branch at 2029, STAT iohexol 2019-04- No 120mL 120 mL, Unive rs (OMNIPAQUE 06-12 Intravenou it y of 350 01:30: 01:08 [...] Tue Med ical mg 04/10/20 Branch at 1915, WILL maalox:diph 2019-04- No 15mL 15 mL, Uni vers enhydrAMINE 2-16 -16 Oral, ity of :lidocaine 00:15: 00:15 ONCE, [...] 04/10/20 at 1815, WILL ondansetron 2019-04 Yes [id number] 4mg Take 1 U nivers 4 mg [...] Indication s: acute pain ondansetron 2019-04 Yes [id number] 4mg Take 1 U nivers 4 mg [...] Indication s: acute pain ondansetron 2019-04 Yes [id number] 4mg Take 1 U nivers 4 mg [...] Indication s: acute pain ciprofloxac 2019-04- No [id number] 500mg Take 1 Univers in HCl 500 2-15 12-23 tablet by ity of mg tablet 00:00: 05:59 [place] Medical times Branch daily for 7 days. ciprofloxac 2019-04- No [id number] 500mg Take 1 Univers in HCl 500 2-15 12-21 tablet by ity of mg tablet 00:00: 05:59 [place] (two[place] Medical times Branch daily for 5 days. Vital Signs Vital Name Observation Time Observation Value Comments Source Systolic blood 2022-04-22 02:00:00 152 mm[Hg] Univer sity [facility] Diastolic blood 2022-04-22 02:00:00 88 mm[Hg] [facility] Heart rate 2022-04-22 02:00:00 78 /min [facility] Respiratory rate 2022-04-22 02:00:00 18 /min [facility] Oxygen saturation in 2022-04-22 02:00:00 98 /min [facility] Arterial blood by [facility] Pulse oximetry Branch Body temperature 2022-04-22 00:08:00 37.22 [place] [facility] Body height 2022-04-22 00:08:00 175.3 cm [facility] Body weight 2022-04-22 00:08:00 74.844 kg [facility] [place] [facility] BMI 2022-04-22 00:08:00 24.37 kg/m2 [facility] [place] [facility] Systolic blood 2020-07-17 17:52:00 134 mm[Hg] Univer sity of pressure [place] [facility] Diastolic blood 2020-07-17 17:52:00 97 mm[Hg] Unive rsity of pressure [place] [facility] Heart rate 2020-07-17 17:52:00 102 /min [facility] [place] [facility] Body temperature 2020-07-17 17:52:00 37.44 [place] [facility] [place] [facility] Respiratory rate 2020-07-17 17:52:00 16 /min Univ [facility] [place] [facility] Body weight 2020-07-17 17:52:00 77.111 kg [facility] [place] [facility] BMI 2020-07-17 17:52:00 25.10 kg/m2 Universi ty of [facility] Oxygen saturation in 2020-07-17 17:52:00 99 /min University of Arterial blood by [facility] Pulse oximetry Branch Systolic blood 2020-04-11 02:32:00 134 mm[Hg] Univer sity of pressure [place] [facility] Diastolic blood 2020-04-11 02:32:00 94 mm[Hg] Unive rsity of pressure [place] [facility] Heart rate 2020-04-11 02:32:00 92 /min [facility] [place] [facility] Respiratory rate 2020-04-11 02:32:00 18 /min Univ [facility] [place] [facility] [place] Oxygen saturation in 2020-04-11 02:32:00 98 /min University of Arterial blood by [facility] Pulse oximetry Branch Body temperature 2020-04-10 23:48:00 36.67 [place] [facility] [place] [facility] Body height 2020-04-10 23:48:00 175.3 cm [facility] [place] [facility] Body weight 2020-04-10 23:48:00 79.379 kg [facility] [place] [facility] BMI 2020-04-10 23:48:00 25.84 kg/m2 [facility] [place] [facility] Procedures Procedure Date / Time Performed Performing Clinician Sourc e XR WRIST 3+ VW LEFT 2022-04-22 01:05:48 Alex Gould Univers [facility] CONSENT/REFUSAL FOR 2022-04-21 23:50:01 Doctor Unassigned, No [facility] [place] DIAGNOSIS AND Name Medical Branch TREATMENT CONSENT/REFUSAL FOR 2020-07-17 17:48:26 Doctor Unassigned, No [facility] [place] DIAGNOSIS AND Name Medical Branch TREATMENT URINALYSIS 2020-04-11 01:24:00 Brigitte Moeller [facility] CT ABDOMEN PELVIS W 2020-04-11 01:16:05 Brigitte Moeller [facility] CONTRAST Medical Branch LIPASE 2020-04-11 00:13:00 [facility] COMP. METABOLIC PANEL 2020-04-11 00:13:00 Brigitte Moeller [facility] [place] ([id number]) Medical Branch CBC WITH DIFF 2020-04-11 00:13:00 Brigitte Moeller [facility] COVID-19 (ID NOW RAPID 2020-04-11 00:13:00 [facility] [place] [facility] Medical Branch CONSENT/REFUSAL FOR 2020-04-10 23:32:57 Doctor Unassigned, No [facility] [place] DIAGNOSIS AND Name Medical Branch TREATMENT NOTICE OF PRIVACY 2020-04-10 23:32:47 Doctor Unassigned, No Univ [facility] PRACTICES Name Medical Branch Encounters Start End Encounter Admission Attending Care Care Encounter Source Date/Time Date/Time Type Type Clinicians Facility Department ID 2022-04-21 2022-04-21 Emergency X BRYANNA, [facility] ERT [id number] Univers 18:10:00 20:15:00 ALEX xavier [facility] 2022-04-21 2022-04-21 Emergency Gould, [facility] [id number] Univers 18:10:00 20:15:00 Alex BLAIR [id number] i ty [facility] [id number] [facility] [id number] [facility] 084 Branch 2020-07-17 2020-07-17 Emergency Natan, [facility] [id number] Univers 12:54:00 13:20:00 Pam Blair [id number] [facility] [id number] [facility] [id number] [address] 2020-07-17 2020-07-17 Emergency X [facility] ERT [id number] [facility] 12:54:00 12:54:00 PAM [facility] 2020-04-10 2020-04-10 Emergency [facility] [id number] [facility] 17:50:00 21:00:00 Brigitte Blair [id number] [facility] [id number] [facility] [id number] [address] 2020-04-10 2020-04-10 Emergency X [facility] ERT [id number] [facility] 17:33:00 17:33:00 [facility] Results Test Description Test Time Test Comments Results Result Comments Source URINALYSIS 2020-04-11 02:42:00 Test Item Value Reference Range Interpretation Comme nts APPEARANCE (test code = Hazy Clear A 7856446749) COLOR (test code = 3572078211) Carmen Yellow A PH (test code = 3993343638) 4.8-8.0 SP GRAVITY (test code = 1.003-1.030 2569021686) GLU U QUAL (test code = Normal Normal 3110185701) BLOOD (test code = 6434020992) Negative Negative KETONES (test code = 6014915991) 80 mg/dL Negative A PROTEIN (test code = 2887-8) 100 mg/dL Negative A UROBILIN (test code = 2.0 mg/dL Normal A 5172697824) BILIRUBIN (test code = 2 mg/dL Negative A 0308939515) NITRITE (test code = 3013449466) Negative Negative LEUK DELILAH (test code = 25/uL Negative A 6456339268) RBC/HPF (test code = 5977195071) See_Comment H [Automated message] The system which ge nerated this result transmit jaime reference range: 0 - 3 HP F. The reference range was not used to interpret th is result as normal/abnormal . WBC/HPF (test code = 9294890840) See_Comment [Automated message] The system which ge nerated this result transmit jaime reference range: 0 - 5 HP F. The reference range was not used to interpret th is result as normal/abnormal . BACTERIA (test code = Few Negative A 9392200148) MUCOUS (test code = 3149820944) Marked Negative LPF A SQ EPITH (test code = <1 HPF 3946362280) HYAL CAST (test code = See_Comment H [Aut omated message] The 2106361301) system which ge nerated this result transmit jaime reference range: <=2 LPF. The reference range was not used to interpret th is result as normal/abnormal . TRANS EPI (test code = <1 See_Comment [Aut omated message] The 3417869272) system which ge nerated this result transmit jaime reference range: <=1 HPF. The reference range was not used to interpret th is result as normal/abnormal . Ictotest (test code = Negative 4622806771) Lab Interpretation (test code = Abnormal 18931-9) [facility] [id number] 02:05:13 1. ?Findings are indicative of an [...] used. Multiplanarreformats were also obtained. This study wasperformed according to ALARAprinciple for radiation dose reduction.Findings:There is no evidence of o bstructive uropathy. No suspicious renalparenchymal abnormalities are seen. [...] present.IMPRESSION1. Findings are indicative of an enterocolitis which could be infectiousor noninfectious.2. No bowel obstruction, appendicitis, free air, free fluid, orfocalloculated intraperitoneal fluid collections.3. Small left renal cyst.RL: 135[facility] 2020-04-11 01:24:00 Test Item Value Reference Range Interpretation Comments WBC (test code = See_Comment H [Automated 3090-2) message] The system which generated this result transmit jaime reference range : 4.20 - 10.70 10*3/?L. The reference range was not used to interpret this result as normal/abnormal . RBC (test code = See_Comment [Automated 519-8) message] The system which generated this result [...] RDW-SD (test code = 39.8 fL 38.5-51.6 98892-3) RDW-CV (test code = 12.2 % 12.1-15.4 788-0) PLT (test code = See_Comment [Automated 777-3) message] The system which generated this result transmit jaime reference range : 150 - 328 10*3/ ?L. The reference range was not u sed to interpret th is result as normal/abnormal . MPV (test code = 9.7 fL 9.8-13 L 72355-5) NRBC/100 WBC (test See_Comment [Automat ed code = 7566067152) message] The system which generated this result transmit jaime reference range : 0.0 - 10.0 /100 WBCs. The reference range was not used to interpret this result as normal/abnormal . NRBC x10^3 (test code <0.01 See_Comment [Auto mated = 0189586619) message] The system which generated this result transmit jaime reference range : 10*3/?L. The reference range was not used to interpret this result as normal/abnormal . GRAN MAT (NEUT) % 83.2 % (test code = 770-8) IMM GRAN % (test code 0.30 % = 9206940108) LYMPH % (test code = 5.3 % 736-9) MONO % (test code = 10.0 % 5905-5) EOS % (test code = 0.9 % 713-8) BASO % (test code = 0.3 % 706-2) GRAN MAT x10^3(ANC) 15.80 10*3/uL 1.99-6.95 H (test code = 5682216360) IMM GRAN x10^3 (test 0.06 10*3/uL 0-0.06 code = 9789869026) LYMPH x10^3 (test code 1.00 10*3/uL 1.09-3.23 L = 731-0) MONO x10^3 (test code 1.90 10*3/uL 0.36-1.02 H = 742-7) EOS x10^3 (test code = 0.17 10*3/uL 0.06-0.53 711-2) BASO x10^3 (test code 0.05 10*3/uL 0.01-0.09 = 704-7) BANDS (test code = Increased A 8376460283) Lab Interpretation Abnormal (test code = 42375-7) [facility]ID NOW RAPID TESTING)2020-04-11 00:59:00 Test Item Value Reference Range Interpretation Comments SARS-CoV-2 Rapid ID NOW Not Detected Not Detected (test code = 24904-0) AILEEN (test code = AILEEN) ID NOW COVID-19 Assay is an isothermal nucleic acid amplification test intended for the qualitative detection of nucleic acid from SARS-CoV-2 viral RNA in nasopharyngeal (PREPARATION SUPERVISOR CANNING) specimens. It is used under Emergency Use [...] indicated. Lab Interpretation Normal (test code = 21537-7) [facility] Metabolic [id number] 00:42:00 Test Item Value Reference Range Interpretation Comments NA (test code = 139 mmol/L 135-145 8090653224) K (test code = 4.0 mmol/L 3.5-5 3555388422) CL (test code = 101 mmol/L 98-108 0133414265) CO2 TOTAL (test code = 28 mmol/L 23-31 9193897443) AGAP (test code = 2-16 7264955642) BUN (test code = 11 mg/dL 7-23 5521876215) GLUCOSE (test code = 92 mg/dL 70-110 1123275709) CREATININE (test code 0.82 mg/dL 0.6-1.25 = 9320880378) TOTAL BILI (test code 0.7 mg/dL 0.1-1.1 = 2704229586) CALCIUM (test code = 9.5 mg/dL 8.6-10.6 0454881538) T PROTEIN (test code = 7.6 g/dL 6.3-8.2 0786012661) ALBUMIN (test code = 4.5 g/dL 3.5-5 3735055997) ALK PHOS (test code = 62 U/L 34-122 1126662569) ALTv (test code = 10 U/L 5-50 1742-6) AST(SGOT) (test code = 22 U/L 13-40 8183796697) eGFR Calculation mL/min/1.73m2 (Non-) (test code = 4256533219) eGFR Calculation mL/min/1.73m2 () (test code = 2672568034) AILEEN (test code = AILEEN) Association of [...] or urine or abnormalities in imaging tests). [facility], [id number] 00:42:00 Test Item Value Reference Range Interpretation Comments LIPASE (test code = 9889546064) 19 U/L 0-220 Lab Interpretation (test code = Normal 00681-7) [facility]"
[2022-11-28 20:22] LABS: Specific Gravity 1.024 (1.005-1.030); Urine Bacteria <20 /HPF (<20); Urine Bilirubin 1+ (Negative); Urine Blood Negative (Negative); Urine Clarity Extremely Turbid (Clear); Urine Color Yellow (Yellow); Urine Glucose NEGATIVE (Negative); Urine Mucus 2+ /HPF (None Seen); Urine Protein 1+ (Negative); Urine Urobilinogen 1+ (Normal); Urine pH 5.5 (5.0-7.0)
[2022-11-28] MEDS ORDERED: NA CHLORIDE 0.9% 1,000 ML ONE (20:38)
[2022-11-28 20:45] LABS: Absolute Lymphocytes (CBC) 1.7 K/uL (0.7-4.9); Lymphocytes % 16.2 % (15.3-44.8); MCV 98.8 fL (80-100); MPV 7.7 fL (7.6-11.3); RBC Red Blood Cell Count 4.66 M/uL (4.33-5.43)
[2022-11-28 21:02] LABS: Barbiturates NEGATIVE (NEGATIVE); Benzodiazepines NEGATIVE (NEGATIVE); Cocaine NEGATIVE (NEGATIVE); METHAMPHETAM NEGATIVE (NEGATIVE); Methadone NEGATIVE (NEGATIVE); Opiates NEGATIVE (NEGATIVE); Phencyclidine NEGATIVE (NEGATIVE); THC Cannibis POSITIVE (NEGATIVE)
[2022-11-28 21:11] LABS: Albumin 4.6 g/dL (3.4-5.0); Bilirubin Total 0.9 mg/dL (0.2-1.0); Troponin High Sensitivity 5.6 pg/mL (<58.9)
--- NOTE | 2022-11-28 21:43 | RAD REPORT ---
EXAM DESCRIPTION: CT - Abdomen Pelvis Wo Contrast - 11/28/2022 9:32 pm CLINICAL HISTORY: Abdominal pain /dysuria COMPARISON: None TECHNIQUE: Computed axial tomography of the abdomen and pelvis was obtained. IV and oral contrast we re not requested. All CT scans are performed using dose optimization technique as appropriate and may include automated exposure control or mA/KV adjustment according to patient size. FINDINGS: The evaluation of solid organs, vessels and bowel is limited secondary to the lack of con trast administration. The liver, spleen, pancreas, adrenals and right kidney appear grossly normal. 5 millimeter hemorrhagic/proteinaceous cyst left kidney The appendix is normal. There is no evidence of diverticulitis. Small umbilical hernia IMPRESSION: No significant abnormality is displayed
--- NOTE | 2022-11-28 22:02 | EDPHYS ---
Physician Documentation [facility] Name: Eliceo Jeronimo Age: 32 yrs Sex: Male : 1990 Arrival Date: 11/28/2022 Time: 16:31 Bed 17 Private MD: ED Physician Car Urbina HPI: 11/28 16:50 This 32 yrs old Male presents to ER via Ambulatory with complaints of Urinary Problem, sb4 Back Pain. 16:50 Onset: The symptoms/episode began/occurred 1 week(s) ago. Patient states that for about sb4 a week his urine has been very dark and thick. He states that it does not burn to urinate but it is a little difficult. He reports bilateral flank pain and generalized muscle cramps as well. Denies any fevers or abdominal pain but does report nausea and vomiting. States that he does work outside 10 to 12 hours a day. Historical: - Allergies: 16:40 No Known Allergies; mb9 - Home Meds: 16:40 None [Active]; mb9 - PMHx: 16:40 Bipolar disorder; manic/depressive; Paranoid Schizophrenia; mb9 - PSHx: 16:40 Back surgery; mb9 - Immunization history:: Adult Immunizations up to date. - Social history:: Smoking status: Patient reports the use of cigarette tobacco products, smokes one pack cigarettes per day. ROS: 16:50 Constitutional: Negative for fever, chills, and weight loss, Eyes: Negative for injury, sb4 pain, redness, and discharge, ENT: Negative for injury, pain, and discharge, Cardiovascular: Negative for chest pain, palpitations, and edema, Respiratory: Negative for shortness of breath, cough, wheezing, and pleuritic chest pain, MS/Extremity: Negative for injury and deformity. 16:50 Abdomen/GI: Positive for nausea and vomiting, Negative for abdominal pain, diarrhea, constipation. 16:50 : Positive for flank pain, hematuria, difficulty urinating, foul smelling urine, Negative for urinary frequency, burning with urination, penile discharge, penile pain, testicular pain 16:50 All other systems are negative. Exam: 16:50 Constitutional: This is a well developed, well nourished patient who is awake, alert, sb4 and in no acute distress. Head/Face: Normocephalic, atraumatic. Eyes: Extra-ocular motions intact. Periorbital areas with no swelling, redness, or edema. ENT: Mucous membranes moist. Respiratory: Lungs have equal breath sounds bilaterally, clear to auscultation and percussion. No rales, rhonchi or wheezes noted. No increased work of breathing, no retractions or nasal flaring. Abdomen/GI: Soft, non-tender, no distension. Back: No spinal tenderness. No costovertebral tenderness. Full range of motion. Skin: Warm, dry with normal turgor. Normal color with no rashes, no lesions, and no evidence of cellulitis. MS/ Extremity: Pulses equal, no cyanosis. Neurovascular intact. Full, normal range of motion. Neuro: Awake and alert, GCS 15, oriented to person, place, time, and situation. Cranial nerves II-XII grossly intact. Motor strength 5/5 in all extremities. Sensory grossly intact. Cerebellar exam normal. Normal gait. 16:50 Cardiovascular: Rate: tachycardic, Rhythm: regular, Heart sounds: normal, normal S1and S2, Edema: is not appreciated. 16:50 Psych: Behavior/mood is pleasant, cooperative. Vital Signs: 16:37 BP 149 / 90; Pulse 105; Resp 18; Temp 98.2; Pulse Ox 100% on R/A; Weight 79.38 kg; mb9 Height 5 ft. 9 in. ; Pain 6/10; 21:05 BP 132 / 82; Pulse 98; Resp 18 S; Pulse Ox 100% on R/A; ha1 22:05 BP 139 / 89; Pulse 97; Resp 18 S; Pulse Ox 100% on R/A; ha1 16:37 Body Mass Index 25.84 (79.38 kg, 175.26 cm) mb9 16:37 Pain Scale: Adult mb9 MDM: 16:39 Patient medically screened. sb4 16:50 Differential diagnosis: Rhabdomyolysis, cystitis, pyelonephritis, STI, BPH, sb4 nephrolithiasis, ureterolithiasis, drug abuse, dehydration. 21:59 Data reviewed: vital signs, nurses notes, lab test result(s), radiologic studies, I sb4 have discussed the patient's presentation/case with the attending Emergency Department Physician; and as a result, I will discharge patient. Counseling: I had a detailed discussion with the patient and/or guardian regarding: the historical points, exam findings, and any diagnostic results supporting the discharge/admit diagnosis, the presence of at least one elevated blood pressure reading (>120/80) during this emergency department visit, lab results, radiology results, the need for outpatient follow up, a urologist, to return to the emergency department if symptoms worsen or persist or if there are any questions or concerns that arise at home. 11/28 16:46 Order name: CBC with Diff; Complete Time: 20:47 sb4 11/28 16:46 Order name: CMP; Complete Time: 21:14 sb4 11/28 16:46 Order name: Lipase; Complete Time: 21:14 sb4 11/28 16:46 Order name: UAM; Complete Time: 20:24 sb4 11/28 16:46 Order name: CPK; Complete Time: 21:14 sb4 11/28 16:46 Order name: Urine Drug Screen; Complete Time: 21:02 sb4 11/28 16:46 Order name: Troponin High Sensitivity; Complete Time: 21:14 sb4 11/28 16:46 Order name: Lactate w/ 2H reflex if indic.; Complete Time: 21:14 sb4 11/28 21:15 Order name: CT Abd/Pelvis - Without Contrast; Complete Time: 21:48 sb4 11/28 16:46 Order name: IV Saline Lock; Complete Time: 20:39 sb4 11/28 16:46 Order name: Labs collected and sent; Complete Time: 20:39 sb4 Administered Medications: 20:39 Drug: NS 0.9% IV 1000 ml Route: IV; Rate: 1 bolus; Site: right antecubital; mb9 22:37 Follow up: Response: No adverse reaction; IV Status: Completed infusion; IV Intake: ha1 1000ml 22:13 Drug: Rocephin IV 1 grams Route: IV; Rate: bolus; Site: right antecubital; ha1 22:37 Follow up: Response: No adverse reaction ha1 Disposition Summary: 11/28/22 22:01 Discharge Ordered Location: Home sb4 Problem: new sb4 Symptoms: have improved sb4 Condition: Stable sb4 Diagnosis - 5 mm hemorrhagic/proteinaceous cyst left kidney sb4 Followup: sb4 - With: Valdez Henson MD - When: 2 - 3 days - Reason: Recheck today's complaints, Continuance of care, Re-evaluation by your physician Discharge Instructions: - Discharge Summary Sheet sb4 Forms: - Medication Reconciliation Form sb4 - Thank You Letter sb4 - Antibiotic Education sb4 - Prescription Opioid Use sb4 - Patient Portal Instructions sb4 Prescriptions: - ketorolac 10 mg Oral tablet - take 1 tablet by ORAL route every 4 to 6 hours for 1 day as needed for pain; do sb4 not exceed 4 doses per 24 hrs; 12 tablet; Refills: 0, Product Selection Permitted - Cipro 500 mg Oral Tablet - take 1 tablet by ORAL route every 12 hours for 7 days; 14 tablet; Refills: 0, sb4 Product Selection Permitted - Tramadol 50 mg Oral Tablet - take 1 tablet by ORAL route every 8 hours as needed; 12 tablet; Refills: 0, sb4 Product Selection Permitted Addendum: 11/30/2022 10:40 Co-signature as Attending Physician, Car Urbina MD I reviewed the patient's care r t provided by the Advanced Practice Provider and agree with the diagnosis and treatment plan. Signatures: Dispatcher [employer] Livier Pyle, RN RN ha1 Veronica Samuel PAFredi PANegritaC sb4 Krysta Valdez RN RN mb9 Car Urbina MD MD rt
--- NOTE | 2022-11-28 22:02 | ER ---
Nurse's Notes [facility] Name: Eliceo Jeronimo Age: 32 yrs Sex: Male : 1990 Arrival Date: 11/28/2022 Time: 16:31 Bed 17 Private MD: Diagnosis: 5 mm hemorrhagic/proteinaceous cyst left kidney Presentation: 11/28 16:37 Chief complaint: Patient states: "For the past week, my urine is really dark. I'm mb9 barley able to urinate, painful urination, left sided kidney pain, muscle aches, and cramps. I drink a lot of water but can't keep anything down". Coronavirus screen: Vaccine status: Patient reports being unvaccinated. Ebola Screen: No symptoms or risks identified at this time. Initial Sepsis Screen: Does the patient meet any 2 criteria? HR > 90 bpm. Does the patient have a suspected source of infection? No. Patient's initial sepsis screen is negative. Risk Assessment: Do you want to hurt yourself or someone else? Patient reports no desire to harm self or others. Onset of symptoms was November 28, 2022. 16:37 Method Of Arrival: Ambulatory 9 16:37 Acuity: SID 3 mb9 Triage Assessment: 16:40 General: Appears in no apparent distress. Behavior is calm, cooperative, appropriate mb9 for age. Pain: Complains of pain in left flank Pain radiates to abdomen Pain currently is 6 out of 10 on a pain scale. Quality of pain is described as squeezing, Pain began 1 week ago Is continuous. Neuro: [place] Agitation-Sedation Scale (RASS): 0 - Alert and Calm Level of Consciousness is awake, alert, obeys commands, Oriented to person, place, time, situation, Appropriate for age. Cardiovascular: Patient's skin is warm and dry. Respiratory: Airway is patent Respiratory effort is even, unlabored, Respiratory pattern is regular, symmetrical. GI: Reports lower abdominal pain, nausea, vomiting. : Reports burning with urination, urgency, urinary frequency. Derm: Skin is pink, warm \\T\\ dry. Musculoskeletal: Range of motion: intact in all extremities, Reports muscle cramps. Historical: - Allergies: 16:40 No Known Allergies; mb9 - Home Meds: 16:40 None [Active]; mb9 - PMHx: 16:40 Bipolar disorder; manic/depressive; Paranoid Schizophrenia; mb9 - PSHx: 16:40 Back surgery; mb9 - Immunization history:: Adult Immunizations up to date. - Social history:: Smoking status: Patient reports the use of cigarette tobacco products, smokes one pack cigarettes per day. Screenin:39 [facility] ED Fall Risk Assessment (Adult) History of falling in the last 3 months, mb9 including since admission No falls in past 3 months (0 pts) Confusion or Disorientation No (0 pts) Intoxicated or Sedated No (0 pts) Impaired Gait No (0 pts) Mobility Assist Device Used No (0 pt) Altered Elimination No (0 pt) Score/Fall Risk Level 0 - 2 = Low Risk Oriented to surroundings, Maintained a safe environment, Educated pt \\T\\ family on fall prevention, incl call for assistance when getting out of bed. Abuse screen: Denies threats or abuse. Nutritional screening: No deficits noted. Tuberculosis screening: No symptoms or risk factors identified. Assessment: 16:42 Reassessment: see triage assessment. 9 21:10 Reassessment: Patient and/or family updated on plan of care and expected duration. Pain ha1 level reassessed. Patient is alert, oriented x 3, equal unlabored respirations, skin warm/dry/pink. 21:10 Pain: Complains of pain in left low back Pain does not radiate. Pain currently is 6 out ha1 of 10 on a pain scale. Quality of pain is described as throbbing. Neuro: Level of Consciousness is awake, alert, obeys commands, Oriented to person, place, time, situation. Musculoskeletal: Circulation, motion, and sensation intact. Range of motion: intact in all extremities. 22:10 Reassessment: Patient and/or family updated on plan of care and expected duration. Pain ha1 level reassessed. Patient is alert, oriented x 3, equal unlabored respirations, skin warm/dry/pink. Vital Signs: 16:37 BP 149 / 90; Pulse 105; Resp 18; Temp 98.2; Pulse Ox 100% on R/A; Weight 79.38 kg; mb9 Height 5 ft. 9 in. ; Pain 6/10; 21:05 BP 132 / 82; Pulse 98; Resp 18 S; Pulse Ox 100% on R/A; ha1 22:05 BP 139 / 89; Pulse 97; Resp 18 S; Pulse Ox 100% on R/A; ha1 16:37 Body Mass Index 25.84 (79.38 kg, 175.26 cm) mb9 16:37 Pain Scale: Adult mb9 ED Course: 16:35 Patient arrived in ED. mr 16:39 Veronica Samuel PA-C is PHCP. sb4 16:39 Car Urbina MD is Attending Physician. sb4 16:40 Triage completed. mb9 16:40 Arm band placed on. mb9 20:38 Inserted saline lock: 20 gauge in right antecubital area, using aseptic technique. mb9 20:39 Placed in gown. Bed in low position. Call light in reach. Side rails up X 1. Client mb9 placed on continuous cardiac and pulse oximetry monitoring. NIBP monitoring applied. 20:39 Troponin High Sensitivity Sent. mb9 20:39 CBC with Diff Sent. mb9 20:39 CMP Sent. mb9 20:39 Lipase Sent. mb9 20:39 CPK Sent. mb9 21:34 CT Abd/Pelvis - Without Contrast In Process Unspecified. EDMS 22:00 Valdez Henson MD is Referral Physician. sb4 22:36 Livier Moon, VEDA is Primary Nurse. ha1 22:40 No provider procedures requiring assistance completed. IV discontinued, intact, ha1 bleeding controlled, No redness/swelling at site. Pressure dressing applied. 22:41 Provided Education on: follow ups. ha1 Administered Medications: 20:39 Drug: NS 0.9% IV 1000 ml Route: IV; Rate: 1 bolus; Site: right antecubital; mb9 22:37 Follow up: Response: No adverse reaction; IV Status: Completed infusion; IV Intake: ha1 1000ml 22:13 Drug: Rocephin IV 1 grams Route: IV; Rate: bolus; Site: right antecubital; ha1 22:37 Follow up: Response: No adverse reaction ha1 Medication: 20:39 VIS not applicable for this client. mb9 Intake: 22:37 IV: 1000ml; Total: 1000ml. ha1 Outcome: 22:01 Discharge ordered by . sb4 22:40 Discharged to home ambulatory. ha1 22:40 Condition: stable 22:40 Discharge instructions given to patient, Instructed on discharge instructions, follow up and referral plans. medication usage, Demonstrated understanding of instructions, follow-up care, medications, Prescriptions given X 3. 22:41 Patient left the ED. ha1 Signatures: Dispatcher [employer] Krysta Garces Heidy, RN RN ha1 Veronica Samuel, PANegritaC PA-C sb4 Krysta Valdez RN RN mb9
[2022-11-28] MEDS ORDERED: NA CHLORIDE 0.9% 50 ML ONE (22:39)
[2022-11-28] MEDS ORDERED: CEFTRIAXONE 1000 MG/VIAL ONE (22:39)
[2022-11-28 22:51] VITALS: TEMP 98.2; O2SAT 100
[2022-11-28 22:54] VITALS: BP 139/89
== END 2022-11-28 22:41 | disposition home or self-care (01) ==
LOC: ER 16:31
DX: N28.1 Cyst of kidney, acquired (principal); F17.210 Nicotine dependence, cigarettes, uncomplicated
CPT/HCPCS: 96361; 85025; 81001; 36415; 82550; 83605; 84484; 83690; 80053; 80307; 74176; 96374; 99284; J7030; J0696